=== PATIENT | male | born 1940 | race Caucasian/White ===

== ENCOUNTER 2019-03-17 07:56 | Observation (INO) | payer MEDICARE ==
[~2019-03-17] VITALS: Ht 177.8 cm; Wt 84.5 kg
[2019-03-17 09:04] VITALS: BP 138/80
[2019-03-17] MEDS ORDERED: SITA100T PO (09:21)
[2019-03-17] MEDS ORDERED: CHOL5000 PO (09:21)
[2019-03-17] MEDS ORDERED: LISI-167 PO (09:21)
[2019-03-17] MEDS ORDERED: ASPI81TA45 PO (09:21)
[2019-03-17] MEDS ORDERED: ATOR20TA37 PO (09:21)
[2019-03-17] MEDS ORDERED: ASPIRIN 325 MG TABLET EC PO ONE (09:30)
[2019-03-17] MEDS ORDERED: VERAPAMIL 2.5 MG/ML, 2ML ONE (09:57)
[2019-03-17] MEDS ORDERED: HEPARIN 1,000 UNITS/ML, 10ML ONE (09:57)
[2019-03-17] MEDS ORDERED: FENTANYL PF 100 MCG/2ML ONE (09:57)
[2019-03-17] MEDS ORDERED: LIDOCAINE-MPF 1%, 5ML ONE (09:57)
[2019-03-17] MEDS ORDERED: TICAGRELOR 90 MG TABLET ONE (09:57)
[2019-03-17] MEDS ORDERED: MIDAZOLAM 1 MG/ML, 5ML ONE (09:57)
[2019-03-17] MEDS ORDERED: BIVALIRUDIN 250 MG ONE (09:57)
[2019-03-17] MEDS ORDERED: CLOPIDOGREL 300 MG TABLET ONE (12:42)
[2019-03-17] MEDS ORDERED: BIVALIRUDIN 250 MG in SODIUM CHLORIDE 0.9% 50 ML IV SCH (12:48)
[2019-03-17] MEDS ORDERED: SODIUM CHLORIDE 0.9% 1,000 ML IV SCH (12:48)
[2019-03-17 13:00] VITALS: BP 148/78
[2019-03-17 13:47] VITALS: BP 143/75
[2019-03-17 19:41] LABS: TROPONIN I 0.057 ng/mL (0.000-0.045)
[2019-03-17 20:49] VITALS: BP 163/76
[2019-03-17] MEDS ORDERED: ATORVASTATIN 20 MG TABLET PO SCH (21:00)
[2019-03-18 00:22] VITALS: BP 151/74
[2019-03-18 05:10] LABS: ANION GAP 7 mmol/L (5-15); CALCIUM 9.1 mg/dL (8.5-10.1); CHLORIDE 109 mmol/L (98-107); CREATININE 1.23 mg/dL (0.7-1.3)
[2019-03-18 07:28] VITALS: BP 124/73
[2019-03-18] MEDS ORDERED: CLOP75TA PO (08:27)
[2019-03-18] MEDS ORDERED: METO25TA91 PO (08:27)
[2019-03-18] MEDS ORDERED: LISINOPRIL 10 MG TABLET PO SCH (09:00)
[2019-03-18] MEDS ORDERED: CHOLECALCIFEROL 5,000u TAB PO SCH (09:00)
[2019-03-18] MEDS ORDERED: LINAGLIPTIN 5 MG TAB PO SCH (09:00)
[2019-03-18] MEDS ORDERED: ASPIRIN 81 MG TABLET EC PO SCH ×2 (09:00)
[2019-03-18] MEDS ORDERED: CLOPIDOGREL 75 MG TABLET PO SCH (09:00)
[2019-03-18] MEDS ORDERED: METOPROLOL SUCCINATE 25 MG TAB.ER.24H PO SCH (18:00)
== END 2019-03-18 09:20 | disposition home or self-care (01) ==
LOC: CACL 07:56 → 5SO 12:50 → CACL 23:17 → DCLOUNGE 03-18 09:11
PROVIDERS: ADMIT Internal Medicine Cardiovascular Disease; ATTEND Internal Medicine Cardiovascular Disease
DX: I25.10 Atherosclerotic heart disease of native coronary artery without angina pectoris (principal); I25.82 Chronic total occlusion of coronary artery; I35.0 Nonrheumatic aortic (valve) stenosis; I42.9 Cardiomyopathy, unspecified; Z79.899 Other long term (current) drug therapy
CPT/HCPCS: 36415; 80048; 84484; 92928; 93005; 93460; 99156; 99157; C1725; C1769; C1876; C1887; C1894; G0378; J0583; J1644; J2250; J3010; Q9967

== ENCOUNTER → 2019-05-31 | Outpatient (CLI) | payer MEDICARE ==
[~2019-05-31] MED LIST: ASPI81TA45 PO; ATOR20TA37 PO; ATROPINE SYRINGE 0.1 MG/ML, 10ML ONE; CHOL5000 PO; CLOP75TA PO; DOBUTAMINE/D5W PMX 250 ML ONE; LISI-167 PO; METO25TA91 PO; NITROGLYCERIN 0.4 MG BOTTLE (25 TABS) SL ONE; SITA100T PO
== END | disposition home or self-care (01) ==
LOC: CARD 09:57
PROVIDERS: ATTEND Internal Medicine Cardiovascular Disease
DX: I35.0 Nonrheumatic aortic (valve) stenosis (principal)
CPT/HCPCS: 93017; 93350; J1250; J0461

== ENCOUNTER → 2020-06-06 | Outpatient (CLI) | payer MEDICARE ==
[~2020-06-06] MED LIST changes: -ATROPINE SYRINGE 0.1 MG/ML, 10ML ONE; +CLOP75TA52 PO; -DOBUTAMINE/D5W PMX 250 ML ONE; +METO25TA2 PO; -NITROGLYCERIN 0.4 MG BOTTLE (25 TABS) SL ONE
[2020-06-06 09:37] LABS: BASOPHILS % (AUTO) 1 % (0-1); EOSINOPHILS % (AUTO) 3 % (1-7); LYMPHOCYTES % (AUTO) 24 % (22-44); MEAN CORPUSCULAR HEMOGLOBIN 29.5 pg (27.5-34.5); MEAN CORPUSCULAR HGB CONC 33.7 g/dL (33.2-36.2); MEAN PLATELET VOLUME 8.4 fL (7.4-10.4); MONOCYTES % (AUTO) 9 % (2-9); NEUTROPHILS % (AUTO) 64 % (42-75); PLATELET COUNT 178 x10^3/uL (130-400); RED BLOOD COUNT 5.35 x10^6/uL (4.38-5.82); RED CELL DISTRIBUTION WIDTH 14.6 % (9.4-14.8)
[2020-06-06 09:47] LABS: ALANINE AMINOTRANSFERASE 23 U/L (12-78); ALBUMIN 4.1 g/dL (3.4-5.0); ANION GAP 5 mmol/L (5-15); CALCIUM 9.4 mg/dL (8.5-10.1); CHLORIDE 110 mmol/L (98-107); CREATININE 1.36 mg/dL (0.7-1.3)
[2020-06-06 09:50] LABS: ALKALINE PHOSPHATASE 84 U/L (45-117); BILIRUBIN,TOTAL 0.8 mg/dL (0.2-1.0); TOTAL PROTEIN 7.7 g/dL (6.4-8.2)
[2020-06-06 09:58] LABS: MD NO
== END | disposition home or self-care (01) ==
LOC: STAR 08:09
PROVIDERS: ATTEND Orthopaedic Surgery
DX: Z01.810 Encounter for preprocedural cardiovascular examination (principal); Z01.818 Encounter for other preprocedural examination; M16.12 Unilateral primary osteoarthritis, left hip; M25.552 Pain in left hip; I45.2 Bifascicular block; Z20.822 Contact with and (suspected) exposure to COVID-19
CPT/HCPCS: 36415; 80053; 85025; 87081; 93005; U0003

== ENCOUNTER 2020-06-12 07:35 | Day surgery (SDC) | payer MEDICARE ==
[~2020-06-12] VITALS: Ht 177.8 cm; Wt 84.0 kg
[~2020-06-12 07:35] MED LIST changes: +ACETAMINOPHEN 500 MG TABLET PO ONE; +CHLORHEXIDINE 15 ML UDC PO ONE; +EPHEDRINE 50 MG/ML, 1ML IVPush PRN; +EPINEPHRINE 1 MG/ML, 1ML ONE; +FENTANYL PF 100 MCG/2ML IV PRN; +HYDROmorphone 1 MG/ML, 1ML INJ IVPush PRN; +KETOROLAC 60 MG/2 ML ONE; +LABETALOL 5MG/ML, 20ML IV PRN; +LACTATED RINGERS 1,000 ML IV SCH; +ONDANSETRON 2MG/ML, 2ML IVPush PRN; +OXYcodone 5 MG/5 ML ORAL.SOL UDC PO PRN; +PROMETHAZINE 25 MG/ML, 1ML IVPush PRN; +ROPIvacaine/PF 0.2%, 20 ML ONE; +SODIUM CHLORIDE 0.9% 50 ML ONE; +TRANEXAMIC ACID 100 MG/ML, 10ML ONE; +VANCOMYCIN 1,000 MG ONE; +hydrALAzine 20 MG/ML, 1ML IV PRN
[2020-06-12 07:36] VITALS: BP 155/87
[2020-06-12] MEDS ORDERED: FENTANYL PF 250 MCG/5ML ONE (08:18)
[2020-06-12] MEDS ORDERED: SUCCINYLCHOLINE 20 MG/ML, 10ML ONE (08:32)
[2020-06-12] MEDS ORDERED: DEXAMETHASONE 4 MG/ML, 1ML ONE (08:32)
[2020-06-12] MEDS ORDERED: ONDANSETRON 2MG/ML, 2ML ONE (08:32)
[2020-06-12] MEDS ORDERED: CEFAZOLIN 1,000 MG ONE (08:32)
[2020-06-12] MEDS ORDERED: PROPOFOL 10 MG/ML, 20ML ONE (08:32)
[2020-06-12] MEDS ORDERED: HYDROcodone/APAP 5/325 TABLET PO PRN (09:00)
[2020-06-12] MEDS ORDERED: MORPHINE SULFATE 4 MG/ML, 1ML IVPush PRN (09:00)
[2020-06-12] MEDS ORDERED: TRANEXAMIC ACID 1,000 MG in SODIUM CHLORIDE 0.9% 100 ML IVPB ONE (09:00)
[2020-06-12] MEDS ORDERED: ASPIRIN 81 MG TABLET EC PO SCH (09:00)
[2020-06-12] MEDS ORDERED: DIAZEPAM 5 MG TABLET PO PRN (09:00)
[2020-06-12] MEDS ORDERED: PROMETHAZINE 25 MG/ML, 1ML IM PRN (09:00)
[2020-06-12] MEDS ORDERED: LISINOPRIL 10 MG TABLET PO SCH (09:00)
[2020-06-12] MEDS ORDERED: DEXAMETHASONE 4 MG/ML, 1ML IVPush SCH (09:00)
[2020-06-12] MEDS ORDERED: TEMPLATE NON-FORMULARY MED. (Sitagliptin Phosphate** (Januvia**) 100 MG) PO SCH (09:00)
[2020-06-12] MEDS ORDERED: CLOPIDOGREL 75 MG TABLET PO SCH (09:00)
[2020-06-12] MEDS ORDERED: METOPROLOL SUCCINATE 25 MG TAB.ER.24H PO SCH (09:00)
[2020-06-12] MEDS ORDERED: DOCUSATE 100 MG CAPSULE PO SCH (09:00)
[2020-06-12] MEDS ORDERED: CEFAZOLIN PMX 1GM/50ML 50 ML IVPB SCH (09:00)
[2020-06-12] MEDS ORDERED: OXYcodone IR 5MG TABLET PO PRN (09:00)
[2020-06-12] MEDS ORDERED: ONDANSETRON 4 MG TABLET PO PRN (09:00)
[2020-06-12] MEDS ORDERED: DIPHENHYDRAMINE 50 MG/ML, 1ML IVPush PRN (09:00)
[2020-06-12] MEDS ORDERED: KETOROLAC 30 MG/1 ML IV SCH (09:00)
[2020-06-12] MEDS ORDERED: OXYcodone 5 MG/5 ML ORAL.SOL UDC PO PRN (09:00)
[2020-06-12] MEDS ORDERED: LIDOCAINE-MPF 2% ,5ML ONE (09:10)
[2020-06-12] MEDS ORDERED: PHENYLEPHRINE 10 MG/ML ONE (09:10)
[2020-06-13] MEDS ORDERED: ASPIRIN 81 MG TABLET EC PO SCH ×2 (06:00→18:00)
== END 2020-06-12 14:40 | disposition home or self-care (01) ==
LOC: OUT 07:35 → ORIP 08:39 → UNDOADMOB 08:39 → OUT 14:40
PROVIDERS: ATTEND Orthopaedic Surgery
DX: M16.12 Unilateral primary osteoarthritis, left hip (principal); M25.752 Osteophyte, left hip; E11.22 Type 2 diabetes mellitus with diabetic chronic kidney disease; I12.9 Hypertensive chronic kidney disease with stage 1 through stage 4 chronic kidney disease, or unspecified chronic kidney disease; N18.2 Chronic kidney disease, stage 2 (mild); I25.10 Atherosclerotic heart disease of native coronary artery without angina pectoris; E78.5 Hyperlipidemia, unspecified; Z79.02 Long term (current) use of antithrombotics/antiplatelets; Z79.82 Long term (current) use of aspirin; Z79.84 Long term (current) use of oral hypoglycemic drugs; Z79.891 Long term (current) use of opiate analgesic; Z79.899 Other long term (current) drug therapy; Z96.641 Presence of right artificial hip joint
CPT/HCPCS: 27130; 36415; 72170; 82962; 86850; 86900; 97162; C1713; C1776; J0171; J0330; J0690; J1100; J1885; J2370; J2405; J2704; J2795; J3010; J7120; J3370

== ENCOUNTER 2020-10-18 08:05 | Day surgery (SDC) | payer MEDICARE ==
[~2020-10-18] VITALS: Ht 177.8 cm; Wt 84.5 kg
[~2020-10-18 08:05] MED LIST changes: -ACETAMINOPHEN 500 MG TABLET PO ONE; -CHLORHEXIDINE 15 ML UDC PO ONE; -EPHEDRINE 50 MG/ML, 1ML IVPush PRN; -EPINEPHRINE 1 MG/ML, 1ML ONE; -FENTANYL PF 100 MCG/2ML IV PRN; -HYDROmorphone 1 MG/ML, 1ML INJ IVPush PRN; -KETOROLAC 60 MG/2 ML ONE; -LABETALOL 5MG/ML, 20ML IV PRN; -LACTATED RINGERS 1,000 ML IV SCH; -ONDANSETRON 2MG/ML, 2ML IVPush PRN; -OXYcodone 5 MG/5 ML ORAL.SOL UDC PO PRN; -PROMETHAZINE 25 MG/ML, 1ML IVPush PRN; -ROPIvacaine/PF 0.2%, 20 ML ONE; -SODIUM CHLORIDE 0.9% 50 ML ONE; -TRANEXAMIC ACID 100 MG/ML, 10ML ONE; -VANCOMYCIN 1,000 MG ONE; -hydrALAzine 20 MG/ML, 1ML IV PRN
[2020-10-18] MEDS ORDERED: ATOR20TA PO (08:33)
[2020-10-18 08:39] VITALS: BP 139/81
[2020-10-18 08:48] LABS: BASOPHILS % (AUTO) 1 % (0-1); EOSINOPHILS % (AUTO) 4 % (1-7); LYMPHOCYTES % (AUTO) 27 % (22-44); MEAN CORPUSCULAR HEMOGLOBIN 28.9 pg (27.5-34.5); MEAN CORPUSCULAR HGB CONC 33.8 g/dL (33.2-36.2); MEAN PLATELET VOLUME 8.3 fL (7.4-10.4); MONOCYTES % (AUTO) 9 % (2-9); NEUTROPHILS % (AUTO) 59 % (42-75); PLATELET COUNT 163 x10^3/uL (130-400); RED BLOOD COUNT 5.74 x10^6/uL (4.38-5.82); RED CELL DISTRIBUTION WIDTH 14.8 % (9.4-14.8)
[2020-10-18 08:57] LABS: INTERNATIONAL NORMALIZED RATIO 1.07 (0.93-1.1); PROTHROMBIN TIME 11.4 Seconds (9.6-11.5)
[2020-10-18 08:58] LABS: ANION GAP 7 mmol/L (5-15); CALCIUM 9.6 mg/dL (8.5-10.1); CHLORIDE 109 mmol/L (98-107); CREATININE 1.38 mg/dL (0.7-1.3)
[2020-10-18] MEDS ORDERED: FENTANYL PF 100 MCG/2ML ONE (09:57)
[2020-10-18] MEDS ORDERED: HEPARIN 1,000 UNITS/ML, 10ML ONE (09:57)
[2020-10-18] MEDS ORDERED: BIVALIRUDIN 250 MG ONE (09:57)
[2020-10-18] MEDS ORDERED: VERAPAMIL 2.5 MG/ML, 2ML ONE (09:57)
[2020-10-18] MEDS ORDERED: LIDOCAINE-MPF 1%, 5ML ONE (09:57)
[2020-10-18] MEDS ORDERED: MIDAZOLAM 1 MG/ML, 5ML ONE (09:57)
== END 2020-10-18 12:52 | disposition home or self-care (01) ==
LOC: CACL 08:05
PROVIDERS: ATTEND Internal Medicine Cardiovascular Disease
DX: R07.9 Chest pain, unspecified (principal); I25.119 Atherosclerotic heart disease of native coronary artery with unspecified angina pectoris; I25.83 Coronary atherosclerosis due to lipid rich plaque; I25.82 Chronic total occlusion of coronary artery; I45.10 Unspecified right bundle-branch block; I08.3 Combined rheumatic disorders of mitral, aortic and tricuspid valves; I42.9 Cardiomyopathy, unspecified; I10 Essential (primary) hypertension; E11.9 Type 2 diabetes mellitus without complications; E78.2 Mixed hyperlipidemia; Z79.82 Long term (current) use of aspirin; Z79.84 Long term (current) use of oral hypoglycemic drugs; Z79.899 Other long term (current) drug therapy; Z95.5 Presence of coronary angioplasty implant and graft; Z96.642 Presence of left artificial hip joint
CPT/HCPCS: 36415; 80048; 85025; 85610; 93306; 93356; 93458; 99156; C1769; C1894; J2250; J3010; Q9967; J0583; J1644